=== PATIENT | male | born 1990 | race African-American/Black ===

== ENCOUNTER 2016-12-18 23:41 | Emergency (ER) | payer OTHER ==
[~2016-12-18] VITALS: Ht 182.9 cm; Wt 115.7 kg
[2016-12-19] VITALS: TEMP 36.7; Ht 182.9 cm; Wt 115.7 kg
[2016-12-19] MEDS ORDERED: GUAI1TAB69 PO (00:09)
[2016-12-19 00:35] LABS: ALT/SGPT 92 U/L (12-78); AST/SGOT 42 U/L (15-37); BLOOD UREA NITROGEN 15 mg/dl (7-18); CARBON DIOXIDE 30 mmol/L (21-32); CHLORIDE 103 mmol/L (98-107); GLUCOSE 159 mg/dl (70-99); POTASSIUM 3.2 mmol/L (3.5-5.1); SODIUM 140 mmol/L (136-145)
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
[2016-12-19 00:46] LABS: ALB/GLOB RATIO 1.3 (0.9-2); ALKALINE PHOSPHATASE 58 U/L (45-117); CKMB/CK RATIO 0.7 (0-3.0); THYROID STIMULATING HORMONE 0.422 uIu/ml (0.300-4.500)
[2016-12-19 02:09] LABS: HEMATOCRIT 43.8 % (42-52); MEAN CELL VOLUME 84.7 fL (80-100); MEAN CORPUSCULAR HEMOGLOBIN 32.3 pg (25-34); MEAN CORPUSCULAR HGB CONC 38.1 g/dl (32-36); MEAN PLATELET VOLUME 10.8 fL (7.4-10.4); PLATELET COUNT 185 K/uL (130-400); RED BLOOD COUNT 5.17 M/uL (4.7-6.1); WHITE BLOOD COUNT 7.17 K/uL (4.8-10.8)
[2016-12-19 02:14] LABS: BASO ABS # 0.06 K/uL (0-0.2); BASOPHIL % 0.9 % (0-2); COMPLETE YES; EOSINOPHIL % 0.9 %; LYMPH ABS # 2.17 K/uL (1.2-3.4); LYMPHOCYTE % 30.2 %; META ABS # 0.06 K/uL (0-0); METAMYELOCYTE % 0.9 %; NEUTROPHILS % 27.6 %; VARIANT LYMPHOCYTE % 33.5 %
[2016-12-19 02:37] LABS: BENZODIAZEPINE, URINE NEG (NEG); COCAINE,URINE NEG (NEG); PHENCYCLIDINE, URINE NEG (NEG)
[2016-12-19] MEDS ORDERED: KETOROLAC TROMETHAMINE 30 MG/ML VIAL IV STA (02:46)
[2016-12-19 03:49] LABS: CKMB/CK RATIO 0.7 (0-3.0)
[2016-12-19] MEDS ORDERED: SODIUM CHLORIDE 0.9% 500ML 500 ML IV STA (04:00)
[2016-12-19] MEDS ORDERED: POTASSIUM CHLORIDE 10 MEQ TABCR PO STA (04:00)
[2016-12-19] MEDS ORDERED: EMPTY 8 DRAM VIAL ONE (04:22)
[2016-12-19 05:16] VITALS: BP 147/85; PULSE 89; O2SAT 96
--- NOTE | 2016-12-19 06:53 | DIAGNOSTIC IMAGING REPORT ---
CHEST ONE VIEW PORTABLE CLINICAL HISTORY: Left-sided chest pain COMPARISON STUDY: No previous studies for comparison. FINDINGS: The cardiac and mediastinal contours are normal. There is no evidence of focal pulmonary consolidation. There is no evidence of failure. No pleural effusions are visualized.[ IMPRESSION: No active disease in the chest. Electronically signed by: Simeon Saldivar M.D. 12/19/2016 6:52 AM Dictated Date/Time: 12/19/2016 6:51 AM
== END 2016-12-19 05:19 | disposition home or self-care (01) ==
LOC: EDBD 23:41 → C.EDB 23:45
DX: R07.9 Chest pain, unspecified (principal); F12.10 Cannabis abuse, uncomplicated; E87.6 Hypokalemia; R73.9 Hyperglycemia, unspecified; F17.200 Nicotine dependence, unspecified, uncomplicated; Z83.3 Family history of diabetes mellitus; Z82.49 Family history of ischemic heart disease and other diseases of the circulatory system